=== PATIENT | female | born 1965 | race Caucasian/White ===

== ENCOUNTER 2017-04-20 06:45 | Day surgery (SDC) | payer BC ==
[~2017-04-20] VITALS: Ht 157.5 cm; Wt 72.1 kg
[~2017-04-20 06:45] MED LIST: ACETAMINOPHEN500 MG PO; ADVIL COLD & SINUS; ALLEGRA-D 2424 HOUR PO; AMOXICILLIN500 MG PO; AUGMENTIN875TAB PO; AZELASTINE0.1 %; CIPR1 PO; CIPROFLOXACN500 MG PO; CLARITIN10 M1 PO; DIFLUCAN150 MG PO; EQ PAIN RELIEV500 MG; FIORICET 50-3001 CAP PO; FIORICET PO; FLEXERIL5 M1 PO; FLONASE AL50 MCG/ACT; MEDDOSEPAK PO; METRONIDAZOL500 MG PO; MOTRIN400 MG/TAB PO; NEOMYCIN/POLYMYXIN/G AD; PREDNISONE10 MG PO; TIZANIDINE HCL4 M1 PO; TIZANIDINE4 MG PO; TYLENOL # 31 TA1 OR; [UNRECOGNIZED DRUG - OTHER]
[2017-04-20 09:38] VITALS: BP 118/77
== END 2017-04-20 09:30 | disposition home or self-care (01) | DRG 951 ==
LOC: ENDO 06:45
PROVIDERS: ATTEND Surgery
PROC: 0DJD8ZZ Inspection of Lower Intestinal Tract, Via Natural or Artificial Opening Endoscopic (ICD-10-PCS; principal; 2017-04-20)
DX: Z12.11 Encounter for screening for malignant neoplasm of colon (principal); E78.5 Hyperlipidemia, unspecified